=== PATIENT | female | born 1985 ===

== ENCOUNTER → 2019-03-18 | Outpatient (REF) | payer BC ==
[2019-03-21 14:29] LABS: HPV HYBRID CAPTURE II Positive (Negative)
== END ==
LOC: M LAB LCGH 11:54
PROVIDERS: ATTEND Nurse Practitioner Adult Health
DX: Z12.4 Encounter for screening for malignant neoplasm of cervix (principal)
CPT/HCPCS: 87624; G0123

== ENCOUNTER → 2019-05-02 | Outpatient (REF) | LOC: M LAB LCGH 15:00 | DX: N87.9 Dysplasia of cervix uteri, unspecified (principal) ==